=== PATIENT | female | born 1975 | race Caucasian/White ===

== ENCOUNTER 2022-12-01 12:22 | Inpatient (IN) | payer OTHER ==
[~2022-12-01] VITALS: Ht 157.5 cm; Wt 101.6 kg
[2022-12-01 13:57] VITALS: BP 142/78; PULSE 93; RESP 20; TEMP 98.9; O2SAT 98
[2022-12-01] MEDS ORDERED: ONDANSETRON 4 MG/2 ML VIAL IVP ONE (14:55)
[2022-12-01] MEDS ORDERED: NACL 0.9% 1,000 ML IV SCH (14:55)
[2022-12-01] MEDS ORDERED: KETOROLAC 30 MG/ML VIAL IVP ONE (14:55)
[2022-12-01] MEDS ORDERED: NACL 0.9% 1,000 ML IV ONE (15:00)
[2022-12-01 15:27] LABS: BASOPHILS % (AUTO) 0.3 % (0.0-2.0); HEMATOCRIT 44.1 % (36-48); HEMOGLOBIN 14.8 g/dL (12.0-16.0); LYMPHOCYTES # (AUTO) 1.1 K/uL (2.5-16.5); MEAN CORPUSCULAR HEMOGLOBIN 29 pg (27-31); MEAN CORPUSCULAR HGB CONC 34 g/dL (33-37); MEAN CORPUSCULAR VOLUME 86.4 fL (80-94); MONOCYTES # (AUTO) 1.3 K/uL (0.8-1.0); MONOCYTES % (AUTO) 7.2 % (1.7-9.3); NEUTROPHILS # (AUTO) 15.8 K/uL (1.8-7.7); NEUTROPHILS % (AUTO) 86.5 % (42.2-75.2); PLATELET COUNT (AUTO) 312 K/uL (140-450); RED BLOOD CELL COUNT(AUTO) 5.11 MIL/uL (4.20-5.40); RED CELL DISTRIBUTION WIDTH 13.3 % (11.6-13.7); WHITE BLOOD COUNT (AUTO) 18.3 K/uL (4.8-10.8)
[2022-12-01 15:35] LABS: APPEARANCE,URINE CLEAR (CLEAR); BILIRUBIN,URINE 1+ (NEGATIVE); BLOOD, URINE 2+ (NEGATIVE); COLOR,URINE YELLOW (YELLOW); LEUKOCYTE ESTERASE ,URINE NEGATIVE (NEGATIVE); NITRITE, URINE POSITIVE (NEGATIVE); PROTEIN,URINE 2+ (NEGATIVE); UGLUCOSE 3+ (NEGATIVE); UROBILINOGEN,URINE 0.2 EU/dL (0.2 - 1)
[2022-12-01 15:49] LABS: ALANINE AMINOTRANSFERASE 26 U/L (12-78); ALBUMIN 4.2 g/dL (3.4-5.0); ALKALINE PHOSPHATASE 108 U/L (50-136); AMYLASE 63 U/L (25-115); ANION GAP 18.7 (8-16); ASPARTATE AMINOTRANSFERASE 22 U/L (15-37); CALCIUM 9.7 mg/dL (8.5-10.1); CARBON DIOXIDE 22.1 mmol/L (21-32); CHLORIDE 93 mmol/L (98-107); CREATININE 0.8 mg/dL (0.6-1.3); GFR ARICAN-AMERICAN 98 mL/min (>90); GFR NON ARICAN-AMERICAN 81 mL/min (>90); GLUCOSE 344 mg/dL (74-106); LIPASE 25 U/L (16-77); POTASSIUM 3.8 mmol/L (3.5-5.1); SODIUM SERUM 130 mmol/L (136-145); TOTAL BILIRUBIN 1.2 mg/dL (0.0-1.0); TOTAL PROTEIN, SERUM 8.4 g/dL (6.4-8.2); UREA NITROGEN, BLOOD 18 mg/dL (7-18)
[2022-12-01 15:52] LABS: ICTOTEST NEGATIVE (NEGATIVE)
[2022-12-01 16:05] LABS: BACTERIA,URINE 10-30 (MOD) /HPF (None Seen); SQUAMOUS EPITHELIAL CELL,UR 4-10 (MOD) /LPF (0-3 (FEW))
[2022-12-01 16:13] LABS: ACETONE, SERUM Small (NEGATIVE)
[2022-12-01] MEDS ORDERED: MAG SULF 2000 MG/WATER PREMIX 50 ML IV PRN (17:30)
[2022-12-01] MEDS ORDERED: MAGNESIUM OXIDE 400 MG TAB PO PRN (17:30)
[2022-12-01] MEDS ORDERED: ACETAMINOPHEN 325 MG TAB PO PRN (17:30)
[2022-12-01] MEDS ORDERED: INSULIN REGULAR, HUMAN 100 UNIT/ML VIAL IVP ONE (17:30)
[2022-12-01] MEDS ORDERED: POTASSIUM CHLORIDE 10 MEQ TABER PO PRN (17:30)
[2022-12-01] MEDS ORDERED: HYDROcodone/APAP 5/325 MG 1 TAB TAB PO PRN (17:30)
[2022-12-01] MEDS ORDERED: ENALAPRILAT 2.5 MG/2 ML VIAL IVP ONE (17:30)
[2022-12-01] MEDS ORDERED: KCL 20 MEQ IN 100 mL PREMIX 200 ML IV PRN (17:30)
[2022-12-01] MEDS ORDERED: MORPHINE SULFATE 2 MG/ML SYR IVP PRN (17:30)
[2022-12-01] MEDS ORDERED: cefTRIAXone 1,000 MG VIAL ONE ×2 (17:31→18:00)
[2022-12-01] MEDS ORDERED: DEXTROSE 50% 50 ML SYR IVP PRN (17:35)
[2022-12-01 17:54] LABS: LACTIC ACID 1.7 mmol/L (0.4-2.0)
[2022-12-01] MEDS: INSULIN LANTUS 100 UNITS/ML 10 ML VIAL SUBQ SCH (18:16)
[2022-12-01] MEDS: NACL 0.9% 1,000 ML IV SCH (18:17)
[2022-12-01 18:35] LABS: BLOOD GAS BASE EXCESS -1.8 mmol/L (-2.0-2.0); BLOOD GAS HCO3 20.7 mmol/L (22-26); BLOOD GAS O2 SAT% 98.3 % (92.0-98.5); BLOOD GAS PCO2 29.6 mmHg (35-45); BLOOD GAS PH 7.463 (7.35-7.45); BLOOD GAS PO2 95.5 mmHg (75-100)
[2022-12-01 19:06] VITALS: PULSE 87
[2022-12-01 19:30] VITALS: PULSE 85; RESP 17; O2SAT 95
[2022-12-01 19:55] VITALS: PULSE 104
[2022-12-01] MEDS: BLOOD GLUCOSE MONITORING 1 DEV DEV FS SCH (21:11)
[2022-12-01] MEDS: INSULIN LISPRO SLIDING SCALE 100 UNITS/ML VIAL SUBQ PRN (21:15)
[2022-12-02] VITALS (11 sets, daily range): BP systolic 151–172; BP diastolic 75–95; PULSE 79–94; RESP 16–20; TEMP 97.1–98.6; O2SAT 94–100
[2022-12-02] MEDS: NACL 0.9% 1,000 ML IV SCH ×2 (02:31→14:09)
[2022-12-02] MEDS: BLOOD GLUCOSE MONITORING 1 DEV DEV FS SCH ×4 (06:52→21:02)
[2022-12-02] MEDS: INSULIN LISPRO SLIDING SCALE 100 UNITS/ML VIAL SUBQ PRN ×4 (06:54→21:05)
[2022-12-02 06:55] LABS: BASOPHILS % (AUTO) 0.1 % (0.0-2.0); HEMATOCRIT 39.2 % (36-48); HEMOGLOBIN 13.2 g/dL (12.0-16.0); LYMPHOCYTES # (AUTO) 1.3 K/uL (2.5-16.5); LYMPHOCYTES % (AUTO) 9.7 % (20.5-51.1); MEAN CORPUSCULAR HEMOGLOBIN 29 pg (27-31); MEAN CORPUSCULAR HGB CONC 34 g/dL (33-37); MEAN CORPUSCULAR VOLUME 85.8 fL (80-94); MONOCYTES # (AUTO) 0.9 K/uL (0.8-1.0); MONOCYTES % (AUTO) 6.9 % (1.7-9.3); NEUTROPHILS % (AUTO) 83.3 % (42.2-75.2); PLATELET COUNT (AUTO) 304 K/uL (140-450); RED BLOOD CELL COUNT(AUTO) 4.57 MIL/uL (4.20-5.40); RED CELL DISTRIBUTION WIDTH 12.8 % (11.6-13.7); WHITE BLOOD COUNT (AUTO) 13.2 K/uL (4.8-10.8)
[2022-12-02 07:03] LABS: ALBUMIN 3.4 g/dL (3.4-5.0); ANION GAP 15.5 (8-16); CALCIUM 8.5 mg/dL (8.5-10.1); CARBON DIOXIDE 24.2 mmol/L (21-32); CREATININE 0.6 mg/dL (0.6-1.3); POTASSIUM 3.7 mmol/L (3.5-5.1); TOTAL BILIRUBIN 0.8 mg/dL (0.0-1.0)
[2022-12-02] MEDS: hydrALAZINE 20 MG/ML VIAL IVP PRN ×3 (08:44→21:14)
[2022-12-02] MEDS: ENOXAPARIN 40 MG/0.4 ML SYR SUBQ SCH (09:04)
[2022-12-02] MEDS: PANTOPRAZOLE 40 MG TABEC PO SCH (09:47)
[2022-12-02] MEDS: ONDANSETRON 4 MG/2 ML VIAL IVP PRN ×2 (10:22→21:10)
[2022-12-02] MEDS: lisinopriL 20 MG TAB PO SCH (12:05)
[2022-12-02] MEDS: INSULIN LANTUS 100 UNITS/ML 10 ML VIAL SUBQ SCH (21:07)
[2022-12-02] MEDS: ATORVASTATIN 20 MG TAB PO SCH (21:13)
[2022-12-03] VITALS: BP 138/65; PULSE 90; PULSE 93; RESP 17; TEMP 97.5; O2SAT 93
[2022-12-03 04:00] VITALS: BP 150/73; PULSE 78; PULSE 90; RESP 18; TEMP 97.6; O2SAT 97
[2022-12-03] MEDS: NACL 0.9% 1,000 ML IV SCH ×2 (06:40→22:25)
[2022-12-03] MEDS: BLOOD GLUCOSE MONITORING 1 DEV DEV FS SCH ×4 (06:41→20:54)
[2022-12-03] MEDS: INSULIN LISPRO SLIDING SCALE 100 UNITS/ML VIAL SUBQ PRN ×4 (06:44→20:51)
[2022-12-03 07:33] LABS: BASOPHILS % (AUTO) 0.1 % (0.0-2.0); EOSINOPHILS % (AUTO) 0.1 % (0.0-4.0); HEMATOCRIT 40.9 % (36-48); HEMOGLOBIN 13.9 g/dL (12.0-16.0); LYMPHOCYTES # (AUTO) 1.5 K/uL (2.5-16.5); LYMPHOCYTES % (AUTO) 13.6 % (20.5-51.1); MEAN CORPUSCULAR HEMOGLOBIN 29 pg (27-31); MEAN CORPUSCULAR HGB CONC 34 g/dL (33-37); MEAN CORPUSCULAR VOLUME 85.3 fL (80-94); MONOCYTES # (AUTO) 1.2 K/uL (0.8-1.0); MONOCYTES % (AUTO) 11.1 % (1.7-9.3); NEUTROPHILS # (AUTO) 8.1 K/uL (1.8-7.7); NEUTROPHILS % (AUTO) 75.1 % (42.2-75.2); PLATELET COUNT (AUTO) 301 K/uL (140-450); RED BLOOD CELL COUNT(AUTO) 4.79 MIL/uL (4.20-5.40); RED CELL DISTRIBUTION WIDTH 12.7 % (11.6-13.7); WHITE BLOOD COUNT (AUTO) 10.8 K/uL (4.8-10.8)
[2022-12-03 08:00] VITALS: BP 151/71; PULSE 103; PULSE 76; PULSE 80; RESP 18; TEMP 98.2; O2SAT 100
[2022-12-03 08:14] LABS: ALBUMIN 3.2 g/dL (3.4-5.0); ANION GAP 14.4 (8-16); CALCIUM 8.5 mg/dL (8.5-10.1); CARBON DIOXIDE 23.5 mmol/L (21-32); CREATININE 0.6 mg/dL (0.6-1.3); TOTAL BILIRUBIN 0.7 mg/dL (0.0-1.0); TOTAL PROTEIN, SERUM 6.8 g/dL (6.4-8.2)
[2022-12-03 08:23] LABS: POTASSIUM 2.9 mmol/L (3.5-5.1)
[2022-12-03] MEDS: lisinopriL 20 MG TAB PO SCH (09:01)
[2022-12-03] MEDS: ENOXAPARIN 40 MG/0.4 ML SYR SUBQ SCH (09:01)
[2022-12-03] MEDS: PANTOPRAZOLE 40 MG TABEC PO SCH (09:01)
[2022-12-03 09:21] VITALS: PULSE 80; RESP 18; O2SAT 100
[2022-12-03 12:00] VITALS: BP 154/66; PULSE 83; PULSE 87; RESP 18; TEMP 97.8; O2SAT 100
[2022-12-03 20:00] VITALS: BP 150/75; PULSE 86; RESP 18; TEMP 98.3; O2SAT 100; O2SAT 98
[2022-12-03] MEDS: ATORVASTATIN 20 MG TAB PO SCH (20:44)
[2022-12-03] MEDS: INSULIN LANTUS 100 UNITS/ML 10 ML VIAL SUBQ SCH (20:54)
[2022-12-04] MEDS: NACL 0.9% 1,000 ML IV SCH (03:59)
[2022-12-04 04:00] VITALS: BP 146/71; PULSE 85; RESP 18; TEMP 96.8; O2SAT 97
[2022-12-04 05:41] LABS: BASOPHILS % (AUTO) 0.1 % (0.0-2.0); EOSINOPHILS % (AUTO) 0.4 % (0.0-4.0); HEMOGLOBIN 13.9 g/dL (12.0-16.0); LYMPHOCYTES # (AUTO) 1.6 K/uL (2.5-16.5); LYMPHOCYTES % (AUTO) 21.4 % (20.5-51.1); MEAN CORPUSCULAR HEMOGLOBIN 29 pg (27-31); MEAN CORPUSCULAR HGB CONC 34 g/dL (33-37); MEAN CORPUSCULAR VOLUME 85.4 fL (80-94); MONOCYTES # (AUTO) 0.9 K/uL (0.8-1.0); MONOCYTES % (AUTO) 12.2 % (1.7-9.3); NEUTROPHILS % (AUTO) 65.9 % (42.2-75.2); PLATELET COUNT (AUTO) 288 K/uL (140-450); RED CELL DISTRIBUTION WIDTH 12.8 % (11.6-13.7); WHITE BLOOD COUNT (AUTO) 7.6 K/uL (4.8-10.8)
[2022-12-04] MEDS: BLOOD GLUCOSE MONITORING 1 DEV DEV FS SCH ×3 (06:38→17:30)
[2022-12-04] MEDS: INSULIN LISPRO SLIDING SCALE 100 UNITS/ML VIAL SUBQ PRN ×2 (06:39→15:19)
[2022-12-04 07:13] LABS: ALBUMIN 3.1 g/dL (3.4-5.0); ANION GAP 13.8 (8-16); CALCIUM 8.5 mg/dL (8.5-10.1); CARBON DIOXIDE 24.2 mmol/L (21-32); CREATININE 0.6 mg/dL (0.6-1.3); MAGNESIUM 1.9 mg/dL (1.8-2.4); TOTAL BILIRUBIN 0.8 mg/dL (0.0-1.0); TOTAL PROTEIN, SERUM 6.5 g/dL (6.4-8.2)
[2022-12-04 08:00] VITALS: PULSE 85; RESP 18; O2SAT 99
[2022-12-04] MEDS: PANTOPRAZOLE 40 MG TABEC PO SCH (09:40)
[2022-12-04] MEDS: lisinopriL 20 MG TAB PO SCH (09:40)
[2022-12-04] MEDS: ENOXAPARIN 40 MG/0.4 ML SYR SUBQ SCH (09:47)
[2022-12-04] MEDS ORDERED: ATOR20TA40 PO (15:11)
[2022-12-04] MEDS ORDERED: METF-1139 PO (15:11)
[2022-12-04] MEDS ORDERED: LISI20TA29 PO (15:11)
[2022-12-04] MEDS ORDERED: INSU100S22 SUBQ (15:11)
[2022-12-04] MEDS ORDERED: BLOO-224 MC (15:12)
[2022-12-04] MEDS ORDERED: GLUC-404 INH (15:13)
[2022-12-04 15:21] VITALS: BP 146/71; PULSE 85; RESP 18; TEMP 96.8
[2022-12-04 16:09] VITALS: O2SAT 97
== END 2022-12-04 18:25 | disposition home or self-care (01) | DRG 720 ==
LOC: MED 12:22 → MTU 17:29
PROVIDERS: ADMIT Internal Medicine; ATTEND Internal Medicine
DX: A41.9 Sepsis, unspecified organism (principal); E11.10 Type 2 diabetes mellitus with ketoacidosis without coma; E66.01 Morbid (severe) obesity due to excess calories; N39.0 Urinary tract infection, site not specified; R63.1 Polydipsia; I10 Essential (primary) hypertension; E78.5 Hyperlipidemia, unspecified; Z68.41 Body mass index [BMI] 40.0-44.9, adult; Z88.8 Allergy status to other drugs, medicaments and biological substances; Z79.899 Other long term (current) drug therapy
CPT/HCPCS: 36415; 36600; 80053; 81001; 82009; 82150; 82803; 82948; 83036; 83605; 83690; 83735; 85025; 87040; 87081; 87086; 96361; 96365; 96375; 99285; J0360; J0696; J1650; J1815; J1885; J2405; J3480; J3490; J7060